=== PATIENT | male | born 1945 | race Caucasian/White ===

== ENCOUNTER 2019-12-02 01:31 | Emergency (ER) | payer MEDICARE ==
--- NOTE | 2019-12-02 03:01 | EDM.PDOCBH ---
ED HPI GENERAL MEDICAL PROBLEM - General Chief Complaint: Behavioral/Psych Stated Complaint: SOB Time Seen by Provider: 12/02/19 02:50 Source of Information: Reports: Patient, Family History Limitations: Reports: No Limitations - History of Present Illness INITIAL COMMENTS - FREE TEXT/NARRATIVE: 74-year-old male with chronic PTSD issues, anxiety, and chronic Xanax and Ambien medications ran out of his medicines 3 days ago. He thought he could get them filled here but was unable. He has been 3 days without his Xanax or his Ambien, he is drinking nightly but he cannot sleep, tonight he felt very anxious and short of breath and thought he was significantly ill. He is having no pain. Onset: Gradual Duration: Day(s): (Worsening over 3 days) Associated Symptoms: Reports: Shortness of Breath, Other (Intermittent palpitations). Denies: Chest Pain Epigastric Pain Score (Numeric/FACES): 2 - Related Data Allergies Allergy/AdvReac Type Severity Reaction Status Date / Time Penicillins Allergy Rash Verified 12/02/19 01:47 antidepessives Allergy Other Uncoded 12/02/19 01:47 Home Meds: Home Meds ALPRAZolam [Xanax] 0.25 mg PO BID 12/02/19 [History] Cyclobenzaprine [Flexeril] 5 mg PO DAILY PRN 12/02/19 [History] Loratadine 10 mg PO DAILY PRN 12/02/19 [History] Metoprolol Tartrate 25 mg PO DAILY PRN 12/02/19 [History] Omeprazole 10 mg PO BID 12/02/19 [History] Tamsulosin [Tamsulosin 24 Hr] 0.4 mg PO BID 12/02/19 [History] Testosterone [Androgel] 75 gm TD ASDIRECTED 12/02/19 [History] Zolpidem Tartrate [Ambien] 10 mg PO BEDTIME 12/02/19 [History] Past Medical History HEENT History: Reports: Allergic Rhinitis Cardiovascular History: Reports: None Other Respiratory History: ? sleep apena just had testing done no results Gastrointestinal History: Reports: Cholelithiasis, GERD Other Genitourinary History: reduced kidney function Musculoskeletal History: Reports: Fracture Neurological History: Reports: Migraines Psychiatric History: Reports: Anxiety, Depression, PTSD Endocrine/Metabolic History: Reports: None Hematologic History: Reports: Transfusion Reaction Other Hematologic History: vitamin D deficiency Immunologic History: Reports: None Oncologic (Cancer) History: Reports: Leukemia Other Oncologic History: CLL Dermatologic History: Reports: Other (See Below) Other Dermatologic History: itcy sores - Infectious Disease History Infectious Disease History: Reports: Chicken Pox - Past Surgical History HEENT Surgical History: Reports: Adenoidectomy, Tonsillectomy GI Surgical History: Reports: Cholecystectomy, Colonoscopy Social & Family History - Tobacco Use Smoking Status *Q: Former Smoker Used Tobacco, but Quit: Yes Month/Year Tobacco Last Used: 1970 - Caffeine Use Caffeine Use: Reports: Coffee, Soda - Recreational Drug Use Recreational Drug Use: No ED ROS GENERAL - Review of Systems Review Of Systems: See Below Constitutional: Reports: Malaise. Denies: Fever, Chills HEENT: Reports: No Symptoms Respiratory: Reports: Shortness of Breath Cardiovascular: Reports: Palpitations. Denies: Chest Pain GI/Abdominal: Denies: Nausea, Vomiting Neurological: Reports: Other (Significant insomnia and anxiety) Psychiatric: Reports: Anxiety ED EXAM, BEHAVIORAL HEALTH - Physical Exam Exam: See Below Exam Limited By: No Limitations General Appearance: Alert, No Apparent Distress Head: Atraumatic Respiratory/Chest: No Respiratory Distress, Lungs Clear Cardiovascular: Regular Rate, Rhythm, No Murmur. No: Extra Beats GI/Abdominal: Non-Tender Extremities: No: Pedal Edema Neurological: Alert, Oriented x 3 Psychiatric: Restless (Very anxious) COURSE, BEHAVIORAL HEALTH COMP - Course Vital Signs: Last Vital Signs Temp 97.5 F 12/02/19 01:40 Pulse 69 12/02/19 01:40 Resp 16 12/02/19 01:40 BP 146/70 H 12/02/19 01:40 Pulse Ox 98 12/02/19 01:40 Re-Assessment/Re-Exam: Reassured the patient that his vitals and exam are normal and this is typical withdrawal from being without his benzodiazepines. He is going to get his medications overnight delivered by his daughter who picked up his prescriptions today, and he was discharged with ten 1 mg Ativan to bridge until he gets his medications. Departure - Departure Time of Disposition: 03:14 Disposition: Home, Self-Care 01 Clinical Impression: Anxiety - Discharge Information Instructions: Living With Anxiety Referrals: PCP,None [Primary Care Provider] - Forms: ED Department Discharge Care Plan Goals: Take Lorazepam as prescribed over the next several days while [facility]. Sepsis Event Note (ED) - Evaluation Sepsis Screening Result: No Definite Risk - Focused Exam Vital Signs: Vital Signs Temp Pulse Resp BP Pulse Ox 12/02/19 01:40 97.5 F 69 16 146/70 H 98
== END 2019-12-02 03:14 | disposition home or self-care (01) ==
LOC: JP.ED 01:31
DX: F41.9 Anxiety disorder, unspecified (principal); K21.9 Gastro-esophageal reflux disease without esophagitis; Z87.891 Personal history of nicotine dependence; Z88.0 Allergy status to penicillin; Z88.8 Allergy status to other drugs, medicaments and biological substances; Z79.899 Other long term (current) drug therapy
CPT/HCPCS: 99283